=== PATIENT | male | born 1960 | race Caucasian/White ===

== ENCOUNTER 2025-03-15 15:46 | Inpatient (IN) | payer OTHER, MEDICAID ==
[~2025-03-15] VITALS: Ht 185.4 cm; Wt 96.1 kg
[~2025-03-15 15:46] MED LIST: CARI-578 PO; CARV12.544 PO; DIAZ5TAB3 PO; PANC1CAP PO; Pantoprazole Sodium Sesquihydr PO; SENN25TA9 PO; TRAZ300T13 PO
--- NOTE | 2025-03-15 15:57 | ED.PDOC ---
History of Present Illness HPI Comments 64-year-old male who presents to the ER with prior medical history of pancreatitis, fibromyalgia; surgical history appendectomy, cholecystectomy, hernia repair, tonsillectomy in the chief complaint of abdominal pain. Patient reports on having epigastric pain which radiates to the back with nausea and vomiting and diarrhea for the past three days. Patient does not have a PCP. Social history of marijuana use(last use was 03/01/2025). Denies chills, fever, SOB, CP. No other associated symptoms, modifiers, recent injuries or sick contacts present at this time. Vital signs were stable at arrival. Time Seen by MD: 15:55 Primary Care Provider: YENI Reviewed Notes: Nurses Notes, Medications, Allergies Allergies: Coded Allergies: Morphine (Unverified Allergy, Severe, 12/19/15) Penicillins (Verified Allergy, Severe, 12/19/15) Home Meds Active Scripts [Pantoprazole Sodium Sesquihydr] 40 MG TB No Conflict Check, 40 MG PO DAILY, #30 Prov:DARIA ARAYA MD 12/22/15 Reported Medications Pancreatic Enzymes (Pancreaze) 10,500 [place]t [place], [address] UNT PO, CAP 12/19/15 Carvedilol (Carvedilol) 12.5 Mg Tab, 2 TAB PO BID, #180 TAB 1 Refill 02/08/15 Senna (Laxative) 25 Mg Tab, 25 MG PO DAILY, TAB 02/08/15 Trazodone Hcl (Trazodone Hcl) 300 Mg Tab, 300 MG PO HS 11/21/14 Diazepam (Diazepam) 5 Mg Tab, 5 MG PO HS 11/21/14 Carisoprodol (Carisoprodol) 350 Mg Tab, 350 MG PO TIDPRN PRN for FOR MUSCLE SPASM 11/21/14 Information Source: Patient Mode of Arrival: Ambulatory Severity: Moderate Timing: Days Duration: Since onset, Days Prehospital treatment: None Past Medical History Past Medical History (Other): Diagnosed with pancreatitis, fibromyalgia Surgical History: Appendectomy, Cholecystectomy, Hernia Repair, Tonsillectomy Family History Family History: Reviewed,noncontributory to illness, Unknown Social History Smoker: Non-Smoker Alcohol: Denies ETOH Use, Sober Drugs: Marijuana (Last use was on 03/01/2025) Lives In: Home Constitutional: denies: chills, diaphoresis, fatigue, fever, malaise, sweats, weakness, others EENTM: denies: blurred vision, double vision, ear bleeding, ear discharge, ear drainage, ear pain, ear ringing, eye pain, eye redness, hearing loss, mouth pain, mouth swelling, nasal discharge, nose bleeding, nose congestion, nose pa in, photophobia, tearing, throat pain, throat swelling, voice changes, others Respiratory: denies: cough, hemoptysis, orthopnea, SOB at rest, shortness of breath, SOB with excertion, stridor, wheezing, others Cardiovascular: denies: chest pain, dizzy spells, diaphoresis, Dyspnea on exertion, edema, irregular heart beat, left arm pain, lightheadedness, palpitations, PND, syncope, others Gastrointestinal: reports: abdominal pain, diarrhea, nausea, vomiting; denies: abdomen distended, blood streaked bowels, constipated, dysphagia, difficulty swallowing, hematemesis, melena, poor appetite, poor fluid intake, rectal bleeding, rectal pain, others Genitourinary: denies: burning, dysuria, flank pain, frequency, hematuria, incontinence, penile discharge, penile sore, pain, testicle pain, testicle swelling, urgency, others Neurological: denies: dizziness, fainting, headache, left sided numbness, left sided weakness, numbness, paresthesia, pre-existing deficit, right sided numbness, right sided weakness, seizure, speech problems, tingling, tremors, weakness, others Musculoskeletal: reports: back pain; denies: gout, joint pain, joint swelling, muscle pain, muscle stiffness, neck pain, others Integumetry: denies: bruises, change in color, change in hair/nails, dryness, laceration, lesions, lumps, rash, wounds, others Allergic/Immunocompromised: denies: Difficulty Healing, Frequent Infections, Hives, Itching, others Hematologic/Lymphatic: denies: anemia, blood clots, easy bleeding, easy bruising, swollen glands, others Endocrine: denies: excessive hunger, excessive sweating, excessive thirst, excessive urination, flushing, intolerance to cold, intolerance to heat, unexplained weight gain, unexplained weight loss, others Psychiatric: denies: anxiety, bipolar disorder, depression, hopeless, panic disorder, schizophrenia, sleepless, suicidal, others All Other Systems: Reviewed and Negative Physical Exam General Appearance: Moderate Distress (Patient was in moderate distress at time of evaluation due to belly pain concerns.), Normal HEENT: Normal ENT Inspection, Pharynx Normal, TMs Normal Neck: Full Range of Motion, Non-Tender, Normal, Normal Inspection Respiratory: Chest Non-Tender, Lungs Clear, No Accessory Muscle Use, No Respiratory Distress, Normal Breath Sounds Cardiovascular: No Edema, No JVD, No Murmur, No Gallop, Normal Peripheral Pulses, Regular Rate/Rhythm Breast Exam: Deferred Gastrointestinal: No Pulsatile Mass, Normal Bowel Sounds, Soft, Other (Diffuse epigastric tenderness to palpation. Mildly rigid abdomen. No pulsatile masses.) Genitalia: Deferred Pelvic: Deferred Rectal: Deferred Extremities: No calf tenderness, Normal capillary refill, Normal inspection, Normal range of motion, Non-tender, No pedal edema Musculoskeletal : Apperance: Normal Neurologic: Alert, No Motor Deficits, Normal Affect, Normal Mood, No Sensory Deficits Cerebellar Function: Normal Reflexes: Normal Skin: Dry, Normal Color, Warm Lymphatic: No Adenopathy Was a procedure done? Was a procedure done?: No Differential Dx Considerations may include: Pancreatitis, liver cirrhosis, fatty liver, gastroenteritis, constipation, Mets, acid reflux, sepsis, electrolyte abnormality, UTI X-Ray, Labs, Meds, VS Vital Signs Date Time Temp Pulse Resp B/P (MAP) Pulse Ox O2 Delivery O2 Flow Rate FiO2 03/15/25 19:23 91 15 133/84 03/15/25 19:21 85 10 95 Room Air* 0 21 03/15/25 19:20 89 10 133/84 (100) 95 03/15/25 18:54 90 19 98 Room Air* 0 21 03/15/25 18:35 93 18 130/64 03/15/25 18:00 98.2 98 18 134/81 (98) 96 98.2 03/15/25 17:33 98.2 116 18 137/77 (97) 96 98.2 03/15/25 17:15 116 18 137/77 03/15/25 16:45 121 20 128/78 03/15/25 16:32 121 20 97 Room Air 03/15/25 16:32 97.5 121 20 128/78 (95) 97 97.5 03/15/25 16:08 119 03/15/25 16:01 97.5 133 20 143/98 (113) 96 97.5 Lab Test 03/15/25 19:05 03/15/25 17:00 03/15/25 16:18 03/15/25 16:13 Range/Units Lactic Acid Level 1.3 2.1 *H 0.4-2.0 mmol/L Troponin I High Sensitivity < 3 L 3 L 3 L </=54 ng/L Urine Color Light-yellow Yellow Urine Clarity Clear Clear Urine pH 5.5 5.0-9.0 Urine Specific [place] 1.031 1.001-1.035 Urine Protein Trace H Negative Urine Ketones 4+ H Negative Urine Blood Negative Negative /uL Urine Nitrite Negative Negative Urine Bilirubin Negative Negative Urine Urobilinogen 2 H Negative mg/dL Urine Leukocyte Esterase Negative Negative /uL Urine RBC <1 0 - 3 /hpf Urine Microscopic WBC 1 0-3 /HPF Urine Squamous Epithelial Cells None seen <5 /hpf Urine Bacteria None seen None Seen /hpf Urine Glucose 4+ H Normal mg/dL Urine Opiates Screen Neg NEGATIVE Urine Fentanyl Screen Neg NEGATIVE Urine Barbiturates Screen Neg NEGATIVE Urine Phencyclidine Screen Neg NEGATIVE Urine Amphetamines Screen Neg NEGATIVE Urine Benzodiazepines Screen Neg NEGATIVE Urine Cocaine Screen Neg NEGATIVE Urine Cannabinoids Screen Pos NEGATIVE White Blood Count 10.6 4.4-10.8 10^3/uL Red Blood Count 5.94 H 4.5-5.90 10^6/uL Hemoglobin 17.1 13.5-17.5 g/dL Hematocrit 51.6 41.0-53.0 % Mean Corpuscular Volume 87.0 80.0-100.0 fL Mean Corpuscular Hemoglobin 28.8 28.0-32.0 pg Mean Corpuscular Hemoglobin Concent 33.1 32.0-36.0 g/dL Red Cell Distribution Width 14.3 11.8-14.3 % Platelet Count 178 140-450 10^3/uL Mean Platelet Volume 8.7 6.9-10.8 fL Neutrophils (%) (Auto) 77.1 37.0-80.0 % Lymphocytes (%) (Auto) 18.4 10.0-50.0 % Monocytes (%) (Auto) 4.1 0.0-12.0 % Eosinophils (%) (Auto) 0.2 0.0-7.0 % Basophils (%) (Auto) 0.2 0.0-2.0 % Neutrophils # (Auto) 8.2 1.6-8.6 10 ^3/uL Lymphocytes # (Auto) 2.0 0.4-5.4 10 ^3/uL Monocytes # (Auto) 0.4 0-1.3 10 ^3/uL Eosinophils # (Auto) 0 0-0.8 10 ^3/uL Basophils # (Auto) 0 0-0.2 10 ^3/uL Nucleated Red Blood Cells 0.3 % Sodium Level 138 136-145 mmol/L Potassium Level 4.2 3.5-5.1 mmol/L Chloride Level 106 98-107 mmol/L Carbon Dioxide Level 15 L 20-31 mmol/L Anion Gap 17 H 5-15 Blood Urea Nitrogen 11 9-23 mg/dL Creatinine 1.17 0.700-1.30 mg/dL Glomerular Filtration Rate Calc 69 >90 mL/min BUN/Creatinine Ratio 9.4 L 10.0-20.0 Serum Glucose 172 H 74-106 mg/dL Calcium Level 10.3 8.7-10.4 mg/dL Total Bilirubin 1.1 H 0.2-1.0 mg/dL Aspartate Amino Transferase (AST) 17 13-40 U/L Alanine Aminotransferase (ALT) 27 7-40 U/L Alkaline Phosphatase 96 46-116 U/L Total Protein 7.8 5.7-8.2 g/dL Albumin 5.0 H 3.2-4.8 g/dL Lipase 36 12-53 U/L Plasma/Serum Blood Alcohol < 3.0 <10 mg/dL Test 03/15/25 15:59 Range/Units POC Glucose 160 H 70-106 mg/dl Current Medications Medications (Trade) Dose Ordered Sig/Miguel Route Start Time Stop Time Status Last Admin Hydromorphone HCl (Dilaudid Injection) 0.5 mg ONCE ONCE IM 03/15/25 16:00 03/15/25 16:01 DC 03/15/25 16:45 Ondansetron HCl (Zofran Po) 4 mg ONCE ONCE PO 03/15/25 16:00 03/15/25 16:01 DC 03/15/25 16:44 Sodium Chloride 1,000 ml @ 200 mls/hr Q5H ONCE IV 03/15/25 17:45 03/15/25 22:44 03/15/25 17:58 Hydromorphone HCl (Dilaudid Injection) 0.5 mg ONCE ONCE IV 03/15/25 18:30 03/15/25 18:31 DC 03/15/25 18:35 Ondansetron HCl (Zofran) 4 mg ONCE ONCE IV 03/15/25 18:30 03/15/25 18:31 DC 03/15/25 18:34 X-Ray, Labs, Meds, VS Comment All studies performed the ED were evaluated by me personally. EKG revealed a sinus tachycardia with a rate of 119. 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 CT interval of 151 and QT interval of 322. Patient's laboratories revealed a mildly elevated lactic acid as well as a mild hyperglycemia state. Strangely, the patient had a gap of 17. CT of the abdomen and Atone were pending at time of this note. Patient required significant pain medication and nausea medication to manage him on the facility. Patient will be admitted for intractable abdominal pain with nausea and vomiting. Patient may have some chronic pancreatic concerns. Time of 1ST Reevaluation: 20:10 Reevaluation 1ST: Improved Consultation: PCP, GI Patient Education/Counseling: Diagnosis, Treatment, Prognosis Family Education/Counseling: Diagnosis, Treatment, No Family Present Sepsis Sepsis Reasesment Focused Exam Orders: Laboratory Tests 03/15/25 16:13: Lactic Acid Level 2.1 03/15/25 19:05: Lactic Acid Level 1.3 Departure 1 Departure Time of Disposition: 20:10 Impression: Primary Impression: Intractable abdominal pain Additional Impression: Nausea and vomiting Disposition: ADMITTED INPATIENT Condition: Fair Discharged With: Self Critical Care Note Critical Care Time?: No Stability Stability form required: No Heart Score Heart Score: Heart Score Response (Comments) Value History Slightly Suspicious 0 EKG Repolarization Disturb 1 Age >65 2 Risk Factors 1 or 2 risk factors 1 Troponin Normal limit 0 Total 4 I personally scribed for CLAIRE JARA PAC ([email or web address]) on 03/15/25 at 15:57. Janae ctronically submitted by Landry Ireland ([email or web address]). CLAIRE JARA PAC March 15, 2025 15:57
[2025-03-15 16:26] LABS: Basophils # (auto) 0 10 ^3/uL (0-0.2); Basophils % (auto) 0.2 % (0.0-2.0); Eosinophils # (auto) 0 10 ^3/uL (0-0.8); Eosinophils % (auto) 0.2 % (0.0-7.0); Hematocrit 51.6 % (41.0-53.0); Hemoglobin 17.1 g/dL (13.5-17.5); Lymphocytes % (auto) 18.4 % (10.0-50.0); Mean Corpuscular Hemoglobin 28.8 pg (28.0-32.0); Mean Corpuscular Hgb Conc. 33.1 g/dL (32.0-36.0); Monocytes # (auto) 0.4 10 ^3/uL (0-1.3); Monocytes % (auto) 4.1 % (0.0-12.0); Neutrophils # (auto) 8.2 10 ^3/uL (1.6-8.6); Neutrophils % (auto) 77.1 % (37.0-80.0); Nucleated Red Blood Cells % 0.3 %; Platelet Count (auto) 178 10^3/uL (140-450); Red Blood Cells 5.94 10^6/uL (4.5-5.90); Red Cell Distribution Width 14.3 % (11.8-14.3); White Blood Cell 10.6 10^3/uL (4.4-10.8)
[2025-03-15 16:43] LABS: Alanine Aminotransferase 27 U/L (7-40); Alkaline Phosphatase 96 U/L (46-116); Anion Gap 17 (5-15); Aspartate Aminotransferase 17 U/L (13-40); BUN/Creatinine Ratio 9.4 (10.0-20.0); Blood Urea Nitrogen 11 mg/dL (9-23); Calcium 10.3 mg/dL (8.7-10.4); Chloride 106 mmol/L (98-107); Potassium 4.2 mmol/L (3.5-5.1); Sodium 138 mmol/L (136-145); Total Protein 7.8 g/dL (5.7-8.2)
[2025-03-15 16:44] LABS: Bilirubin, Total 1.1 mg/dL (0.2-1.0)
[2025-03-15] MEDS: ONDANSETRON ODT 4 MG TAB PO ONE (16:44)
[2025-03-15] MEDS: HYDROmorphone HCL 2 MG/ML VL/or syr IM ONE (16:45)
[2025-03-15 16:53] LABS: Blood Alcohol < 3.0 mg/dL (<10); Carbon Dioxide 15 mmol/L (20-31); Glucose 172 mg/dL (74-106)
[2025-03-15 16:54] LABS: Lactic Acid w/Reflex 2.1 mmol/L (0.4-2.0)
[2025-03-15 17:03] LABS: Lipase 36 U/L (12-53)
[2025-03-15 17:11] LABS: Urine Bacteria None Seen /hpf (None Seen)
[2025-03-15 17:27] LABS: Urine Blood Negative /uL (Negative); Urine Clarity Clear (Clear); Urine Color Light-Yellow (Yellow); Urine Protein, UAD TRACE (Negative); Urine Specific Gravity 1.031 (1.001-1.035); Urine Squamous Epithelial Cell None Seen /hpf (<5); Urine Urobilinogen 2 mg/dL (Negative); Urine WBC 1 /HPF (0-3); Urine pH 5.5 (5.0-9.0)
[2025-03-15 17:35] LABS: Opiate Scree,Urine Neg (NEGATIVE)
[2025-03-15 17:40] LABS: Amphetamine Screen, Urine Neg (NEGATIVE); Barbiturate Scree,Urine Neg (NEGATIVE); Benzodiazephine Screen, Urine Neg (NEGATIVE); Cannabinoid Screen, Urine Pos (NEGATIVE); Cocaine Screen, Urine Neg (NEGATIVE); Phencyclidine Screen, Urine Neg (NEGATIVE)
[2025-03-15] MEDS: HYDROmorphone HCL 2 MG/ML VL/or syr IV ONE ×3 (17:53→21:51)
[2025-03-15] MEDS: SODIUM CHLORIDE 0.9% 1,000 ML IV ONE (17:58)
[2025-03-15] MEDS: ONDANSETRON HCL 4 MG/2 ML VIAL IV ONE (18:34)
[2025-03-15] MEDS: ONDANSETRON HCL 4 MG/2 ML VIAL ONE (18:35)
[2025-03-15 18:54] VITALS: PULSE 90; RESP 19; O2SAT 98
[2025-03-15 19:21] VITALS: PULSE 85; RESP 10; O2SAT 95
[2025-03-15 20:36] LABS: Base Excess -7.1 mmol/L (-2.0-3.0)
--- NOTE | 2025-03-15 21:30 | DVH ---
CLINICAL HISTORY: Diffuse epigastric pain TECHNIQUE: CT of the abdomen and pelvis was performed without intravenous contrast. This exam was per formed according to our departmental dose optimization program. Up-to-date CT equipment and radiation dose reduction techniques are utilized as appropriate. CTDI: 0.21+ 20.67 DLP: 1182.29 WID: COMPARISON: None FINDINGS: Lower Thorax: Small cluster of nodular and linear opacities in the lingula. Normal-sized heart. Lung bases otherwise clear. Liver and Biliary system: Cholelithiasis in a contracted gallbladder. There appears to be cavernous t ransformation of the portal vein although this is not optimally evaluated on this noncontrast study. There are portosystemic collateral vessels. Nodular contour of the liver. Spleen: Unremarkable. Adrenal Glands and Kidneys: Tiny nonobstructing right lower pole renal calculus. Normal adrenal gland s. No hydronephrosis. Pancreas and Retroperitoneum: A few tiny sclerotic foci in the pancreas likely chronic calcific pancr eatitis. There is no retroperitoneal lymphadenopathy. Aorta and Major Vessels: Aortoiliac vessels are normal in caliber with mild calcified atherosclerotic plaque. Bowel, Mesentery and Peritoneal space: Normal caliber small and large bowel. There is no free air col lection. Scattered fluid-filled small bowel and large bowel loops. Pelvis: Mild prostatomegaly. Tiny calcifications in the prostate gland. Urinary bladder is mildly dis tended. There is no pelvic lymphadenopathy. Abdominal wall and Osseous Structures: Chondrocalcinosis of the pubic symphysis. Mild lower thoracic and lumbar spondylosis. Moderate degenerative disc disease at L5-S1. No destructive osseous lesion. Small fat containing umbilical hernia and small fat containing supraumbilical anterior abdominal wall hernia to the right of midline. IMPRESSION: 1. Scattered fluid-filled small and large bowel loops which may be physiologic or related to enteroco litis. 2. No bowel obstruction, fluid collection, or free air. 3. 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 4. Nodular contour of the liver which may be fibrosis or cirrhosis. There are portosystemic collatera l vessels present. Correlate with clinical history and liver enzymes. 5. Cholelithiasis. 6. Tiny nonobstructing right renal calculus. 7. Chronic calcific pancreatitis. 8. Mild prostatomegaly.
[2025-03-15] MEDS ORDERED: ACETAMINOPHEN 325 MG TAB PO PRN (22:15)
[2025-03-15] MEDS ORDERED: DOCUSATE SOD 100 MG CAP PO PRN (22:15)
[2025-03-15] MEDS ORDERED: HYDROcodone-ACET 5/325MG TAB PO PRN (22:15)
[2025-03-15] MEDS: metroNIDAZOLE 500MG/100ML 100 ML IV ONE (22:45)
[2025-03-15] MEDS: SODIUM CHLORIDE 0.9% 1,000 ML IV SCH (22:45)
--- NOTE | 2025-03-15 23:35 | DVHHP2 ---
History of Present Illness Reason for Visit: Enterocolitis History of Present Illness The patient is a 64-year-old male with past medical history of pancreatitis, diabetes mellitus, and fibromyalgia who [place] [facility] [place] of acute abdominal pain. Patient reports he has been experiencing epigastric abdominal pain, radiating to his back, associated nausea, vomiting, diarrhea for the past 3 days, getting worse today that prompted this visit. Patient was seen and evaluated in the ED, laboratory data shows WBC 10.6, platelets 178, sodium 138, potassium 4.2, BUN 11, creatinine 1.17, glucose 172, hemoglobin A1c 7.4, total bilirubin 1.1, albumin 5.0, lipase 36, blood pressure 124/87, heart rate 90, temperature 98.2 F, O2 saturation 96% on room air. Abdomen/pelvis CT revealing scattered fluid-filled small and large bowel loops which may be physiologic related to enterocolitis, mild prostatomegaly, no bowel obstruction, fluid collection, or free. Patient was started on IV antibiotic regimen Flagyl, please see medication orders section in the computer. On my assessment, patient denied chest pain, no headache, no dizziness, no shortness of breath, no diaphoresis, no nausea, vomiting, diarrhea at this moment, no fever, no chills. Patient was admitted for further evaluation and medical management. Past Medical History Pancreatitis, Diabetes mellitus, fibromyalgia Past Surgical History Appendectomy, Cholecystectomy, Hernia Repair, Tonsillectomy Family History Reviewed, noncontributory to the management of this case. Past Social History The patient lives at home, denies smoking, alcohol or illicit drugs abuse. Review of Systems Constitutional: No: Fever, Chills, Sweats, Weakness, Malaise, Other Eyes: No: Pain, Vision change, Conjunctivae inflammation, Eyelid inflammation, Other, Redness ENT: No: Ear pain, Ear discharge, Nose pain, Nose discharge, Nose congestion, Mouth pain, Mouth swelling, Throat pain, Throat swelling, Other Respiratory: No: Cough, Dry, Shortness of breath, SOB with excertion, Wheezing, Hemoptysis, Pleuritic Pain, Sputum, Wheezing, Other Cardiovascular: No: Chest Pain, Palpitations, Orthopnea, Paroxysmal Noc. Dyspnea, Edema, Lt Headedness, Other Gastrointestinal: Nausea, Vomiting, Abdominal Pain, Diarrhea; No: Constipation, Melena, Hematochezia, Other Genitourinary: No Dysuria, No Frequency, No Incontinence, No Hematuria, No Retention, No Other Musculoskeletal: back pain; No: other, neck pain, shoulder pain, arm pain, hand pain, leg pain, foot pain Skin: No: Rash, Lesions, Jaundice, Bruising, Other Neurological: No: Weakness, Numbness, Incoordination, Change in speech, Confusion, Seizures, Other Allergies: Coded Allergies: Morphine (Unverified Allergy, Severe, 12/19/15) Penicillins (Verified Allergy, Severe, 12/19/15) Medications Current Medications Medications Dose Ordered Sig/Miguel Route Start Time Stop Time Status Last Admin Dose Admin Pantoprazole Sodium 40 mg DAILY IV 03/16/25 10:00 Hydromorphone HCl 1 mg Q4HPRN PRN IV 03/15/25 22:15 Carvedilol 12.5 mg Q12HR PO 03/16/25 10:00 Metronidazole 100 ml @ 100 mls/hr Q8HR IV 03/16/25 06:00 Sodium Chloride 1,000 ml @ 60 mls/hr [id number] IV 03/15/25 22:15 03/15/25 22:45 60 MLS/HR Acetaminophen/ Hydrocodone Bitart 1 tab Q4HP PRN PO 03/15/25 22:15 Ondansetron HCl 4 mg Q4HP PRN IV 03/15/25 22:15 Docusate Sodium 100 mg BIDPRN PRN PO 03/15/25 22:15 Acetaminophen 650 mg Q6HP PRN PO 03/15/25 22:15 Exam Vital Signs Vital Signs Date Time Temp Pulse Resp B/P (MAP) Pulse Ox O2 Delivery O2 Flow Rate FiO2 03/15/25 22:12 80 17 110/63 03/15/25 19:21 95 Room Air* 0 21 03/15/25 18:00 98.2 98.2 General Appearance: Alert, Oriented X3, Cooperative, No acute distress HEENT: Atraumatic, PERRLA, EOMI, Mucous membr. moist/pink Respiratory: Clear to auscultation, Normal air movement Cardiovascular: Regular rate, Normal S1, Normal S2, No murmurs Abdominal: Normal bowel sounds, Soft, No tenderness, No hepatospenomegaly, No masses Extremities: No clubbing, No cyanosis, No edema, Normal pulses, No tenderness/swelling Skin: No rashes, No breakdown, No significant lesion Neuro: Normal speech, Normal tone, Sensation intact, Cranial nerves 3-12 NL, Reflexes 2+, Other (Generalized weakness) Psych/Mental Status: Mental status NL, Mood NL Labs/Xrays Labs Test 03/15/25 20:32 03/15/25 19:05 03/15/25 16:18 03/15/25 16:13 Range/Units Blood Gas Specimen Type Arterial Blood Gas Sample Site Left radial Blood Gas Patient Temperature 37.0 Arterial Blood Date Drawn [id number] Arterial Blood pH 7.326 L 7.350-7.450 Arterial Blood Partial Pressure CO2 35.0 35.0-48.0 mmHg Arterial Blood Partial Pressure O2 64.9 L 83.0-108.0 mmHg Arterial Blood HCO3 17.9 L 21.0-28.0 mmol/L Arterial Blood Oxygen Saturation 91.2 L 94.0-98.0 % Arterial Blood Base Excess -7.1 L -2.0-3.0 mmol/L Arterial Blood Oxyhemoglobin 89.9 L 94.0-98.0 % Arterial Blood Carboxyhemoglobin 0.8 0.5-1.5 % Arterial Blood Methemoglobin 0.6 0.0-1.5 % Mihai Test Yes Blood Gas Total Hemoglobin 16.30 13.5-17.5 g/dL Blood Gas Liter Flow 0.00 Blood Gas Modality Room air Blood Gas Spontaneous Rate 22 FiO2 % 21.0 Specimen Drawn By Oni montano rt Lactic Acid Level 1.3 0.4-2.0 mmol/L Troponin I High Sensitivity < 3 L </=54 ng/L Urine Color Light-yellow Yellow Urine Clarity Clear Clear Urine pH 5.5 5.0-9.0 Urine Specific [place] 1.031 1.001-1.035 Urine Protein Trace H Negative Urine Ketones 4+ H Negative Urine Blood Negative Negative /uL Urine Nitrite Negative Negative Urine Bilirubin Negative Negative Urine Urobilinogen 2 H Negative mg/dL Urine Leukocyte Esterase Negative Negative /uL Urine RBC <1 0 - 3 /hpf Urine Microscopic WBC 1 0-3 /HPF Urine Squamous Epithelial Cells None seen <5 /hpf Urine Bacteria None seen None Seen /hpf Urine Glucose 4+ H Normal mg/dL Urine Opiates Screen Neg NEGATIVE Urine Fentanyl Screen Neg NEGATIVE Urine Barbiturates Screen Neg NEGATIVE Urine Phencyclidine Screen Neg NEGATIVE Urine Amphetamines Screen Neg NEGATIVE Urine Benzodiazepines Screen Neg NEGATIVE Urine Cocaine Screen Neg NEGATIVE Urine Cannabinoids Screen Pos NEGATIVE White Blood Count 10.6 4.4-10.8 10^3/uL Red Blood Count 5.94 H 4.5-5.90 10^6/uL Hemoglobin 17.1 13.5-17.5 g/dL Hematocrit 51.6 41.0-53.0 % Mean Corpuscular Volume 87.0 80.0-100.0 fL Mean Corpuscular Hemoglobin 28.8 28.0-32.0 pg Mean Corpuscular Hemoglobin Concent 33.1 32.0-36.0 g/dL Red Cell Distribution Width 14.3 11.8-14.3 % Platelet Count 178 140-450 10^3/uL Mean Platelet Volume 8.7 6.9-10.8 fL Neutrophils (%) (Auto) 77.1 37.0-80.0 % Lymphocytes (%) (Auto) 18.4 10.0-50.0 % Monocytes (%) (Auto) 4.1 0.0-12.0 % Eosinophils (%) (Auto) 0.2 0.0-7.0 % Basophils (%) (Auto) 0.2 0.0-2.0 % Neutrophils # (Auto) 8.2 1.6-8.6 10 ^3/uL Lymphocytes # (Auto) 2.0 0.4-5.4 10 ^3/uL Monocytes # (Auto) 0.4 0-1.3 10 ^3/uL Eosinophils # (Auto) 0 0-0.8 10 ^3/uL Basophils # (Auto) 0 0-0.2 10 ^3/uL Nucleated Red Blood Cells 0.3 % Sodium Level 138 136-145 mmol/L Potassium Level 4.2 3.5-5.1 mmol/L Chloride Level 106 98-107 mmol/L Carbon Dioxide Level 15 L 20-31 mmol/L Anion Gap 17 H 5-15 Blood Urea Nitrogen 11 9-23 mg/dL Creatinine 1.17 0.700-1.30 mg/dL Glomerular Filtration Rate Calc 69 >90 mL/min BUN/Creatinine Ratio 9.4 L 10.0-20.0 Serum Glucose 172 H 74-106 mg/dL Hemoglobin A1c 7.4 H <5.7 % A1C Calcium Level 10.3 8.7-10.4 mg/dL Total Bilirubin 1.1 H 0.2-1.0 mg/dL Aspartate Amino Transferase (AST) 17 13-40 U/L Alanine Aminotransferase (ALT) 27 7-40 U/L Alkaline Phosphatase 96 46-116 U/L Total Protein 7.8 5.7-8.2 g/dL Albumin 5.0 H 3.2-4.8 g/dL Lipase 36 12-53 U/L Plasma/Serum Blood Alcohol < 3.0 <10 mg/dL Test 03/15/25 15:59 Range/Units POC Glucose 160 H 70-106 mg/dl PATIENT: PARAM ALBA ACCT: [id number] UNIT: [id number] : 1960 LOC: ER ROOM / BED: / AGE / SEX: 64 / M ADM STATUS: REG ER SERVICE 02 ORDERING PHYSICIAN: CLAIRE JARA PAC PROCEDURE(s): ABPL - CT AB PEL WO CON-NO ORAL OR IV REASON: Diffuse epigastric pain ORDER NUMBER(s): [id number], ACCESSION NUMBER(s): [id number] CLINICAL HISTORY: Diffuse epigastric pain TECHNIQUE: CT of the abdomen and pelvis was performed without intravenous contrast. This exam was performed according to our departmental dose optimization program. Up-to-date CT equipment and radiation dose reduction techniques are utilized as appropriate. CTDI: 0.21+ 20.67 DLP: 1182.29 WID: COMPARISON: None FINDINGS: Lower Thorax: Small cluster of nodular and linear opacities in the lingula. Normal-sized heart. Lung bases otherwise clear. Liver and Biliary system: Cholelithiasis in a contracted gallbladder. 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 There are portosystemic collateral vessels. Nodular contour of the liver. Spleen: Unremarkable. Adrenal Glands and Kidneys: Tiny nonobstructing right lower pole renal calculus. Normal adrenal glands. No hydronephrosis. Pancreas and Retroperitoneum: A few tiny sclerotic foci in the pancreas likely chronic calcific pancreatitis. There is no retroperitoneal lymphadenopathy. Aorta and Major Vessels: Aortoiliac vessels are normal in caliber with mild calcified atherosclerotic plaque. Bowel, Mesentery and Peritoneal space: Normal caliber small and large bowel. There is no free air collection. Scattered fluid-filled small bowel and large bowel loops. Pelvis: Mild prostatomegaly. Tiny calcifications in the prostate gland. Urinary bladder is mildly distended. There is no pelvic lymphadenopathy. Abdominal wall and Osseous Structures: Chondrocalcinosis of the pubic symphysis. Mild lower thoracic and lumbar spondylosis. Moderate degenerative disc disease at L5-S1. No destructive osseous lesion. Small fat containing umbilical hernia and small fat containing supraumbilical anterior abdominal wall hernia to the right of midline. IMPRESSION: 1. Scattered fluid-filled small and large bowel loops which may be physiologic or related to enterocolitis. 2. No bowel obstruction, fluid collection, or free air. 3. 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 4. Nodular contour of the liver which may be fibrosis or cirrhosis. There are portosystemic collateral vessels present. Correlate with clinical history and liver enzymes. 5. Cholelithiasis. 6. Tiny nonobstructing right renal calculus. 7. Chronic calcific pancreatitis. 8. Mild prostatomegaly. Assessment/Plan Assessment/Plan Intractable abdominal pain Enterocolitis Intractable nausea and vomiting Generalized weakness Diabetes mellitus with hyperglycemia Plan 1. Admit to med surge units 2. Breathing treatment 3. Pain control management 4. IV antibiotic management 5. Management of fluids and electrolytes 6. Consultation for hospitalist 7. Diagnostic test abdomen/pelvis CT 8. DVT prophylaxis on SCDs 9. Repeat labs CBC, CMP in a.m. 10. Home medication reviewed and reconciled 11. Continue with current medical management 12. Treatment plan discussed with patient and RN. Patient verbalized understanding. Plan discussed with: Patient, Other (RN) My Orders Orders - DIDI RODRIGUEZ DNP Procedure Category Date Status Time Pantoprazole PHA 03/16/25 In Process (Protonix) 10:00 Hydromorphone PHA 03/15/25 In Process Injection (Dilaudid 22:15 Carvedilol Tablet PHA 03/16/25 In Process (Coreg Tablet) 10:00 Metronidazole PHA 03/16/25 In Process 500mg/100ml (Flagyl 06:00 Allergies TAY 03/15/25 In Process 22:08 Code Status CODE 03/15/25 Transmitted 22:08 Sodium Chloride 0.9% PHA 03/15/25 In Process 22:15 Oxygen Per Hour RT 03/15/25 Transmitted 22:08 Hydrocodone-Acet PHA 03/15/25 In Process 5/325mg Tab ([place] 22:15 Ondansetron Hcl PHA 03/15/25 In Process (Zofran) 22:15 Docusate Sodium PHA 03/15/25 In Process Capsule (Colace 22:15 Complete Blood Count LAB 03/16/25 Verified 04:00 Comprehensive LAB 03/16/25 Verified Metabolic Panel 04:00 Condition: Serious TAY 03/15/25 In Process 22:08 Acetaminophen Tablet PHA 03/15/25 In Process (Tylenol Tablet) 22:15 Clear Liq Diet DIET 03/16/25 Transmitted Breakfast Bedrest With Bathroom TAY 03/15/25 In Process Privileg 22:08 Sequential TAY 03/15/25 In Process Compression Device Problem List: (1) Intractable abdominal pain (2) Enterocolitis (3) Intractable nausea and vomiting (4) Generalized weakness (5) Diabetes mellitus with hyperglycemia Date of Service: March 15, 2025 Billing Provider: DIDI RODRIGUEZ DNP Common Visit Codes: [id number] INP/OBS CARE (HIGH) DIDI RODRIGUEZ DNP March 15, 2025 23:35
[2025-03-15] MEDS ORDERED: MORPHINE SULFATE INJ 2 MG/ml SYRG IV PRN (23:45)
[2025-03-15] MEDS ORDERED: NITROGLYCERIN 0.4 MG SL TAB SL PRN (23:45)
[2025-03-16] VITALS (7 sets, daily range): BP systolic 97–148; BP diastolic 51–89; PULSE 54–75; RESP 18–20; TEMP 97.6–98.7; O2SAT 95–99
[2025-03-16] MEDS: HYDROmorphone HCL 2 MG/ML VL/or syr IV PRN (01:58)
[2025-03-16] MEDS ORDERED: DEXTROSE (50%) 50ML SYRG IV PRN (04:00)
[2025-03-16] MEDS: ACCU-CHEK COMFORT CURVE STRIP VI SCH (06:29)
[2025-03-16] MEDS: metroNIDAZOLE 500MG/100ML 100 ML IV SCH (06:29)
[2025-03-16] MEDS: InsuLIN REG 1unit/0.01ml Soln (100units/ml) SC SCH ×2 (06:29→21:18)
[2025-03-16 07:20] LABS: Basophils # (auto) 0 10 ^3/uL (0-0.2); Basophils % (auto) 0.3 % (0.0-2.0); Eosinophils # (auto) 0.1 10 ^3/uL (0-0.8); Eosinophils % (auto) 1.1 % (0.0-7.0); Hematocrit 41.5 % (41.0-53.0); Hemoglobin 14.4 g/dL (13.5-17.5); Lymphocytes # (auto) 1.8 10 ^3/uL (0.4-5.4); Lymphocytes % (auto) 27.8 % (10.0-50.0); Mean Corpuscular Hemoglobin 29.2 pg (28.0-32.0); Mean Corpuscular Hgb Conc. 34.7 g/dL (32.0-36.0); Mean Corpuscular Volume 84.1 fL (80.0-100.0); Monocytes # (auto) 0.4 10 ^3/uL (0-1.3); Monocytes % (auto) 6.9 % (0.0-12.0); Neutrophils # (auto) 4.2 10 ^3/uL (1.6-8.6); Neutrophils % (auto) 63.9 % (37.0-80.0); Platelet Count (auto) 122 10^3/uL (140-450); Red Blood Cells 4.94 10^6/uL (4.5-5.90); White Blood Cell 6.5 10^3/uL (4.4-10.8)
[2025-03-16 07:37] LABS: Alanine Aminotransferase 18 U/L (7-40); Alkaline Phosphatase 66 U/L (46-116); Anion Gap 7 (5-15); BUN/Creatinine Ratio 12.9 (10.0-20.0); Blood Urea Nitrogen 12 mg/dL (9-23); Carbon Dioxide 22 mmol/L (20-31); Potassium 3.8 mmol/L (3.5-5.1); Sodium 139 mmol/L (136-145); Total Protein 5.9 g/dL (5.7-8.2)
[2025-03-16 07:38] LABS: Albumin 3.9 g/dL (3.2-4.8); Bilirubin, Total 0.8 mg/dL (0.2-1.0)
[2025-03-16 07:47] LABS: Aspartate Aminotransferase 12 U/L (13-40); Calcium 8.5 mg/dL (8.7-10.4); Chloride 110 mmol/L (98-107); Glucose 155 mg/dL (74-106)
--- NOTE | 2025-03-16 07:53 | ECG ---
[facility] Test Date: 2025-03-15 Test Time: 16:04:22 Pat Name: PARAM ALBA Department: ER Room: 0249 A Gender: M Medicaid Analyst: LUCINDA : 1960 Requested By: CLAIRE JARA Order Number: [id number] Reading MD: Murtaza Dumont Measurements Intervals [place] Rate: 119 P: 63 WA: 151 QRS: -59 QRSD: 87 T: 53 QT: 322 QTc: 454 Interpretive Statements Sinus tachycardia Inferior infarct, old Baseline wander in lead(s) II,aVR Electronically Signed On 03-17-2025 12:10:04 PDT by Murtaza Dumont Please click the below link to view image of tracing.
[2025-03-16] MEDS: PANTOPRAZOLE 40 MG/10 ML VIAL INJ IV SCH (09:07)
[2025-03-16] MEDS: CARVEDILOL 12.5 MG TAB PO SCH (10:00)
--- NOTE | 2025-03-16 18:18 | DVHPN2 ---
Subjective I am assuming the care of the patient was from today onwards. Patient is currently tolerating clear liquid diet still complaining of lower abdominal pain. Reviewed: Care Plan Changes from previous H/P or p: No Changes Eyes: No Pain, No Vision change, No Conjunctivae inflammation, No Eyelid inflammation, No Other, No Redness ENT: No Ear pain, No Ear discharge, No Nose pain, No Nose discharge, No Nose congestion, No Mouth pain, No Mouth swelling, No Throat pain, No Throat swelling, No Other Cardiovascular: No Chest Pain, No Palpitations, No Orthopnea, No Paroxysmal Noc. Dyspnea, No Edema, No Lt Headedness, No Other Respiratory: No Cough, No Dry, No Shortness of breath, No SOB with excertion, No Wheezing, No Hemoptysis, No Pleuritic Pain, No Sputum, No Other Gastrointestinal: Nausea, Vomiting, Abdominal Pain, Diarrhea; No Constipation, No Melena, No Hematochezia, No Other Genitourinary: No Dysuria, No Frequency, No Incontinence, No Hematuria, No Retention, No Other Musculoskeletal: No other, No neck pain, No shoulder pain, No arm pain; back pain; No hand pain, No leg pain, No foot pain Skin: No Rash, No Lesions, No Jaundice, No Bruising, No Other Objective Vitals Vital Signs Date Time Temp Pulse Resp B/P (MAP) Pulse Ox O2 Delivery O2 Flow Rate FiO2 03/16/25 17:03 75 18 118/76 03/16/25 16:55 98.5 99 98.5 03/16/25 08:00 Room Air* 0 21 Intake/Output Intake and Output 03/16/25 07:00 Intake Total 1750 ml Balance 1750 ml Intake Oral 650 ml IV Total 1100 ml # Voids 1 Exam HEENT pupils are reactive Neck is supple CV is S1-S2 regular rate and rhythm Diminished breath sound bases GI posterior bowel sounds soft nondistended nontender no guarding no rigidity Extremity no edema FUR PULLER no motor deficits Medications Current Medications Medications Dose Ordered Sig/Miguel Route Start Time Stop Time Status Last Admin Dose Admin Pantoprazole Sodium 40 mg DAILY IV 03/16/25 10:00 03/16/25 09:07 40 MG Hydromorphone HCl 1 mg Q4HPRN PRN IV 03/15/25 22:15 03/16/25 17:03 1 MG Carvedilol 12.5 mg Q12HR PO 03/16/25 10:00 Metronidazole 100 ml @ 100 mls/hr Q8HR IV 03/16/25 06:00 03/16/25 13:55 100 MLS/HR Sodium Chloride 1,000 ml @ 60 mls/hr [id number] IV 03/15/25 22:15 03/16/25 16:57 60 MLS/HR Acetaminophen/ Hydrocodone Bitart 1 tab Q4HP PRN PO 03/15/25 22:15 Ondansetron HCl 4 mg Q4HP PRN IV 03/15/25 22:15 Docusate Sodium 100 mg BIDPRN PRN PO 03/15/25 22:15 Acetaminophen 650 mg Q6HP PRN PO 03/15/25 22:15 Nitroglycerin 0.4 mg Q5MINP PRN SL 03/15/25 23:45 Morphine Sulfate 2 mg Q30M PRN IV 03/15/25 23:45 Hold Diagnostic Test (Pha) 1 strip ACHS 03/16/25 07:00 03/16/25 16:57 1 STRIP Insulin Human Regular HS SC 03/16/25 22:00 Insulin Human Regular AC SC 03/16/25 07:00 03/16/25 17:01 2 UNITS Dextrose 50 ml UD PRN IV 03/16/25 04:00 Laboratory Results Laboratory Tests 03/16/25 07:02 Chemistry Test 03/16/25 07:02 Albumin 3.9 g/dL (3.2-4.8) Calcium Level 8.5 mg/dL (8.7-10.4) L Total Protein 5.9 g/dL (5.7-8.2) LFT Test 03/16/25 07:02 Alanine Aminotransferase (ALT) 18 U/L (7-40) Alkaline Phosphatase 66 U/L (46-116) Aspartate Amino Transferase (AST) 12 U/L (13-40) L Total Bilirubin 0.8 mg/dL (0.2-1.0) Urinalysis Test 03/15/25 16:18 Urine Color Light-yellow (Yellow) Urine Clarity Clear (Clear) Urine pH 5.5 (5.0-9.0) Urine Specific [place] 1.031 (1.001-1.035) Urine Protein Trace (Negative) H Urine Ketones 4+ (Negative) H Urine Blood Negative /uL (Negative) Urine Nitrite Negative (Negative) Urine Bilirubin Negative (Negative) Urine Urobilinogen 2 mg/dL (Negative) H Urine Leukocyte Esterase Negative /uL (Negative) Urine RBC <1 /hpf (0 - 3) Urine Microscopic WBC 1 /HPF (0-3) Urine Squamous Epithelial Cells None seen /hpf (<5) Urine Bacteria None seen /hpf (None Seen) Urine Glucose 4+ mg/dL (Normal) H Blood Gas Results Test 03/15/25 20:32 Arterial Blood pH 7.326 (7.350-7.450) FiO2 % 21.0 Assessment/Plan Assessment/Plan 64-year-old male with a known history of fibromyalgia, previous history of pancreatitis, diabetes mellitus type 2 initially with the hospital with a intractable nausea vomiting and abdominal pain found to have 1. Enterocolitis 2. Intractable abdominal pain 3. Nausea vomiting currently resolved 4. Chronic marijuana use 5. Fibromyalgia -clear liquid diet as tolerated, pain meds, discharge plan Plan discussed with: Patient Date of Service: March 16, 2025 Billing Provider: ELIJAH DALEY MD Common Visit Codes: [id number] INP/OBS CARE(MOD) ELIJAH DALEY MD March 16, 2025 18:18
[2025-03-16] MEDS ORDERED: OXYC-998 PO (20:33)
[2025-03-16] MEDS ORDERED: oxyCODONE ER 10 MG TAB PO PRN (20:45)
[2025-03-16] MEDS: oxyCODONE ER 10 MG TAB PO PRN (23:15)
[2025-03-17 01:00] VITALS: BP 113/63; PULSE 58; RESP 20; TEMP 97.7; O2SAT 98
[2025-03-17] MEDS: ONDANSETRON HCL 4 MG/2 ML VIAL IV PRN (02:40)
[2025-03-17 05:00] VITALS: BP 121/69; PULSE 72; RESP 19; TEMP 97.9; O2SAT 97
[2025-03-17 07:47] VITALS: RESP 18
[2025-03-17 09:19] VITALS: BP 111/73; PULSE 62; RESP 18; TEMP 98.1; O2SAT 97
--- NOTE | 2025-03-17 15:32 | DVHPN2 ---
Subjective Patient is currently tolerating clear liquid diet still complaining of lower abdominal pain. Diet will be advanced to soft diet as per request. Reviewed: Care Plan Changes from previous H/P or p: No Changes Eyes: No Pain, No Vision change, No Conjunctivae inflammation, No Eyelid inflammation, No Other, No Redness ENT: No Ear pain, No Ear discharge, No Nose pain, No Nose discharge, No Nose congestion, No Mouth pain, No Mouth swelling, No Throat pain, No Throat swelling, No Other Cardiovascular: No Chest Pain, No Palpitations, No Orthopnea, No Paroxysmal Noc. Dyspnea, No Edema, No Lt Headedness, No Other Respiratory: No Cough, No Dry, No Shortness of breath, No SOB with excertion, No Wheezing, No Hemoptysis, No Pleuritic Pain, No Sputum, No Other Gastrointestinal: Nausea, Vomiting, Abdominal Pain, Diarrhea; No Constipation, No Melena, No Hematochezia, No Other Genitourinary: No Dysuria, No Frequency, No Incontinence, No Hematuria, No Retention, No Other Musculoskeletal: No other, No neck pain, No shoulder pain, No arm pain; back pain; No hand pain, No leg pain, No foot pain Skin: No Rash, No Lesions, No Jaundice, No Bruising, No Other Objective Vitals Vital Signs Date Time Temp Pulse Resp B/P (MAP) Pulse Ox O2 Delivery O2 Flow Rate FiO2 03/17/25 10:08 65 127/79 03/17/25 09:19 98.1 18 97 98.1 03/17/25 07:47 Room Air* 0 21 Intake/Output Intake and Output 03/17/25 07:00 Intake Total 3100 ml Output Total 1200 ml Balance 1900 ml Intake Oral 1600 ml IV Total 1500 ml Output Urine Total 1200 ml # Voids 4 Exam HEENT pupils are reactive Neck is supple CV is S1-S2 regular rate and rhythm Diminished breath sound bases GI posterior bowel sounds soft nondistended nontender no guarding no rigidity Extremity no edema PLANT [employer]OR no motor deficits Medications Current Medications Medications Dose Ordered Sig/Miguel Route Start Time Stop Time Status Last Admin Dose Admin Pantoprazole Sodium 40 mg DAILY IV 03/16/25 10:00 03/17/25 10:07 40 MG Hydromorphone HCl 1 mg Q4HPRN PRN IV 03/15/25 22:15 Hold 03/17/25 06:38 1 MG Carvedilol 12.5 mg Q12HR PO 03/16/25 10:00 03/17/25 10:08 12.5 MG Metronidazole 100 ml @ 100 mls/hr Q8HR IV 03/16/25 06:00 03/17/25 13:18 100 MLS/HR Sodium Chloride 1,000 ml @ 60 mls/hr [id number] IV 03/15/25 22:15 03/17/25 01:09 60 MLS/HR Acetaminophen/ Hydrocodone Bitart 1 tab Q4HP PRN PO 03/15/25 22:15 Ondansetron HCl 4 mg Q4HP PRN IV 03/15/25 22:15 03/17/25 02:40 4 MG Docusate Sodium 100 mg BIDPRN PRN PO 03/15/25 22:15 Acetaminophen 650 mg Q6HP PRN PO 03/15/25 22:15 Nitroglycerin 0.4 mg Q5MINP PRN SL 03/15/25 23:45 Morphine Sulfate 2 mg Q30M PRN IV 03/15/25 23:45 Hold Diagnostic Test (Pha) 1 strip ACHS 03/16/25 07:00 03/17/25 11:51 1 STRIP Insulin Human Regular HS SC 03/16/25 22:00 Insulin Human Regular AC SC 03/16/25 07:00 03/17/25 12:01 3 UNITS Dextrose 50 ml UD PRN IV 03/16/25 04:00 Oxycodone HCl 10 mg Q8HPRN PRN PO 03/16/25 23:15 03/17/25 12:10 10 MG Laboratory Results Laboratory Tests 03/16/25 07:02 Lipid panel Test 03/17/25 15:17 Lipase Pending Urinalysis Test 03/15/25 16:18 Urine Color Light-yellow (Yellow) Urine Clarity Clear (Clear) Urine pH 5.5 (5.0-9.0) Urine Specific [place] 1.031 (1.001-1.035) Urine Protein Trace (Negative) H Urine Ketones 4+ (Negative) H Urine Blood Negative /uL (Negative) Urine Nitrite Negative (Negative) Urine Bilirubin Negative (Negative) Urine Urobilinogen 2 mg/dL (Negative) H Urine Leukocyte Esterase Negative /uL (Negative) Urine RBC <1 /hpf (0 - 3) Urine Microscopic WBC 1 /HPF (0-3) Urine Squamous Epithelial Cells None seen /hpf (<5) Urine Bacteria None seen /hpf (None Seen) Urine Glucose 4+ mg/dL (Normal) H Assessment/Plan Assessment/Plan 64-year-old male with a known history of fibromyalgia, previous history of pancreatitis, diabetes mellitus type 2 initially with the hospital with a intractable nausea vomiting and abdominal pain found to have 1. Enterocolitis 2. Intractable abdominal pain 3. Nausea vomiting currently resolved 4. Chronic marijuana use 5. Fibromyalgia -clear liquid diet as tolerated, advanced diet as tolerated, pain meds, discharge plan in next 24 hours -empirical antibiotics Plan discussed with: Patient My Orders Orders - ELIJAH DALEY MD Procedure Category Date Status Time Lipase LAB 03/17/25 In Process 14:13 Soft Diet DIET 03/17/25 Transmitted Dinner Date of Service: March 17, 2025 Billing Provider: ELIJAH DALEY MD Common Visit Codes: [id number] INP/OBS CARE(MOD) ELIJAH DALEY MD March 17, 2025 15:32
[2025-03-17 17:00] VITALS: BP 104/66; PULSE 66; RESP 18; TEMP 98.1; O2SAT 97
[2025-03-17 21:00] VITALS: BP 111/70; PULSE 74; RESP 20; TEMP 97.3; O2SAT 97
[2025-03-18 01:00] VITALS: BP 116/70; PULSE 62; RESP 20; TEMP 97.3; O2SAT 98
[2025-03-18 05:00] VITALS: BP 135/75; PULSE 61; RESP 20; TEMP 98.1; O2SAT 98
[2025-03-18 09:00] VITALS: BP 125/71; PULSE 57; RESP 16; TEMP 97.6; O2SAT 94
[2025-03-18 13:00] VITALS: BP 121/80; PULSE 69; RESP 16; TEMP 98.1; O2SAT 97
--- NOTE | 2025-03-20 11:15 | PEER ---
Peer to Peer Review Time DATE: 03/20/25 TIME: 11:13 Review and Recommendations: Spoke with Dr. Middleton approved for inpatient due to Sepsis. MUU CUADRA MD March 20, 2025 11:15
--- NOTE | 2025-03-20 12:34 | DVHDS2 ---
Discharge Summary Date of Admission March 15, 2025 at 23:33 Date of Discharge: March 18, 2025 Labs/Diagnostic Data: Laboratory Results Test 03/18/25 11:52 03/17/25 15:17 03/16/25 07:02 03/15/25 20:32 POC Glucose 175 mg/dl (70-106) Lipase 46 U/L (12-53) White Blood Count 6.5 10^3/uL (4.4-10.8) Red Blood Count 4.94 10^6/uL (4.5-5.90) Hemoglobin 14.4 g/dL (13.5-17.5) Hematocrit 41.5 % (41.0-53.0) Mean Corpuscular Volume 84.1 fL (80.0-100.0) Mean Corpuscular Hemoglobin 29.2 pg (28.0-32.0) Mean Corpuscular Hemoglobin Concent 34.7 g/dL (32.0-36.0) Red Cell Distribution Width 14.0 % (11.8-14.3) Platelet Count 122 10^3/uL (140-450) Mean Platelet Volume 8.3 fL (6.9-10.8) Neutrophils (%) (Auto) 63.9 % (37.0-80.0) Lymphocytes (%) (Auto) 27.8 % (10.0-50.0) Monocytes (%) (Auto) 6.9 % (0.0-12.0) Eosinophils (%) (Auto) 1.1 % (0.0-7.0) Basophils (%) (Auto) 0.3 % (0.0-2.0) Neutrophils # (Auto) 4.2 10 ^3/uL (1.6-8.6) Lymphocytes # (Auto) 1.8 10 ^3/uL (0.4-5.4) Monocytes # (Auto) 0.4 10 ^3/uL (0-1.3) Eosinophils # (Auto) 0.1 10 ^3/uL (0-0.8) Basophils # (Auto) 0 10 ^3/uL (0-0.2) Nucleated Red Blood Cells 0.0 % Sodium Level 139 mmol/L (136-145) Potassium Level 3.8 mmol/L (3.5-5.1) Chloride Level 110 mmol/L (98-107) Carbon Dioxide Level 22 mmol/L (20-31) Anion Gap 7 (5-15) Blood Urea Nitrogen 12 mg/dL (9-23) Creatinine 0.93 mg/dL (0.700-1.30) Glomerular Filtration Rate Calc 91 mL/min (>90) BUN/Creatinine Ratio 12.9 (10.0-20.0) Serum Glucose 155 mg/dL (74-106) Calcium Level 8.5 mg/dL (8.7-10.4) Total Bilirubin 0.8 mg/dL (0.2-1.0) Aspartate Amino Transferase (AST) 12 U/L (13-40) Alanine Aminotransferase (ALT) 18 U/L (7-40) Alkaline Phosphatase 66 U/L (46-116) Total Protein 5.9 g/dL (5.7-8.2) Albumin 3.9 g/dL (3.2-4.8) Blood Gas Specimen Type Arterial Blood Gas Sample Site Left radial Blood Gas Patient Temperature 37.0 Arterial Blood Date Drawn [id number] Arterial Blood pH 7.326 (7.350-7.450) Arterial Blood Partial Pressure CO2 35.0 mmHg (35.0-48.0) Arterial Blood Partial Pressure O2 64.9 mmHg (83.0-108.0) Arterial Blood HCO3 17.9 mmol/L (21.0-28.0) Arterial Blood Oxygen Saturation 91.2 % (94.0-98.0) Arterial Blood Base Excess -7.1 mmol/L (-2.0-3.0) Arterial Blood Oxyhemoglobin 89.9 % (94.0-98.0) Arterial Blood Carboxyhemoglobin 0.8 % (0.5-1.5) Arterial Blood Methemoglobin 0.6 % (0.0-1.5) Mihai Test Yes Blood Gas Total Hemoglobin 16.30 g/dL (13.5-17.5) Blood Gas Liter Flow 0.00 Blood Gas Modality Room air Blood Gas Spontaneous Rate 22 FiO2 % 21.0 Specimen Drawn By Oni montano rt Test 03/15/25 19:05 03/15/25 16:18 03/15/25 16:13 Lactic Acid Level 1.3 mmol/L (0.4-2.0) Troponin I High Sensitivity < 3 ng/L (</=54) Urine Color Light-yellow (Yellow) Urine Clarity Clear (Clear) Urine pH 5.5 (5.0-9.0) Urine Specific [place] 1.031 (1.001-1.035) Urine Protein Trace (Negative) Urine Ketones 4+ (Negative) Urine Blood Negative /uL (Negative) Urine Nitrite Negative (Negative) Urine Bilirubin Negative (Negative) Urine Urobilinogen 2 mg/dL (Negative) Urine Leukocyte Esterase Negative /uL (Negative) Urine RBC <1 /hpf (0 - 3) Urine Microscopic WBC 1 /HPF (0-3) Urine Squamous Epithelial Cells None seen /hpf (<5) Urine Bacteria None seen /hpf (None Seen) Urine Glucose 4+ mg/dL (Normal) Urine Opiates Screen Neg (NEGATIVE) Urine Fentanyl Screen Neg (NEGATIVE) Urine Barbiturates Screen Neg (NEGATIVE) Urine Phencyclidine Screen Neg (NEGATIVE) Urine Amphetamines Screen Neg (NEGATIVE) Urine Benzodiazepines Screen Neg (NEGATIVE) Urine Cocaine Screen Neg (NEGATIVE) Urine Cannabinoids Screen Pos (NEGATIVE) Hemoglobin A1c 7.4 % A1C (<5.7) Plasma/Serum Blood Alcohol < 3.0 mg/dL (<10) Other Laboratory Tests 03/16/25 07:02 Brief Hx & Hospital Course: 64-year-old male with a known history of fibromyalgia, previous history of pancreatitis, diabetes mellitus type 2 initially presented to the hospital with a intractable nausea vomiting and abdominal pain found to have sepsis secondary to enterocolitis. Patient was treated with the IV antibiotics as well as pain meds and nausea medication. Patient does have known history of chronic marijuana use by history. Patient left against medical advice before completion of workup and treatment. a Condition at Discharge: Undetermined Final Diagnosis/Problems List 1. Sepsis secondary to enterocolitis 2. Enterocolitis 3. Diabetes mellitus type 2 4. Fibromyalgia 6. History of chronic pancreatitis Discharge Disposition: [facility] Discharge Will this Physician continue t: No Discharge Instruct/Medications Diet: Regular Activity: No Restrictions, As Tolerated Follow Up/Referral: PCP in days Medications: same home medications Discharge Statement: "Patient was advised to return to the ER or call 911 if any headaches, dizziness, shortness of breath, chest pain, abdominal pain, bleeding, fevers, or worsening of medical condition. Patient was counseled about treatment plan, medications, possible side effects, patientverbalized understanding. All questions were answered to the best of my ability. This discharge took greater then 30 minutes in planning, reviewing documentation, counseling the patient, and discussing with other team members." ASSESSMENT ASSESSMENT Assessment viral gastroenteritis Date of Service: March 18, 2025 Billing Provider: ELIJAH DALEY MD Common Visit Codes: 31716-[place]/OBS DISCH DAY <30MIN ELIJAH DALEY MD March 20, 2025 12:34
== END 2025-03-18 15:32 | disposition left against medical advice (07) | DRG 872 ==
LOC: ER 15:46 → OVERFLOW 23:33 → EAST 03-16 00:50
PROVIDERS: ADMIT Hospitalist; ATTEND Hospitalist
DX: A41.9 Sepsis, unspecified organism (principal); K86.1 Other chronic pancreatitis; E11.65 Type 2 diabetes mellitus with hyperglycemia; A08.4 Viral intestinal infection, unspecified; F12.90 Cannabis use, unspecified, uncomplicated; Z53.29 Procedure and treatment not carried out because of patient's decision for other reasons; M79.7 Fibromyalgia; Z88.0 Allergy status to penicillin; Z88.5 Allergy status to narcotic agent; Z79.899 Other long term (current) drug therapy; Z90.49 Acquired absence of other specified parts of digestive tract
CPT/HCPCS: 36415; 36600; 74176; 80053; 80307; 80320; 81001; 82805; 82962; 83036; 83605; 83690; 84484; 85025; 93005; 96361; 96374; 96375; G0378; J1815; J2405; J2470; J3490; Q0162